=== PATIENT | female | born 2000 | race Caucasian/White ===

== ENCOUNTER 2024-06-05 10:37 | Outpatient (CLI) | payer OTHER, SELFPAY ==
--- NOTE | ~2024-06-05 | US_ITS ---
US abdomen complete DATE: 06/05/2024 11:08 INDICATION: Abdominal pain TECHNIQUE: Real-time imaging and Doppler analysis of the abdomen COMPARISON: None FINDINGS: No hepatic space-occupying mass lesion. Normal hepatopedal portal venous flow direction. No evidence of gallstones or gallbladder wall thickening or abnormal pericholecystic fluid collection . Negative sonographic Candelaria sign. The common bile duct measures 2.3 mm, normal. The pancreas appears normal. Right kidney measures 10.9 cm length, left kidney 10.2 cm. No renal mass lesion or hydronephrosis is noted on either side. The spleen measures 10.5 cm, within normal range. Normal caliber of the abdominal aorta. Flow is demonstrated in the inferior vena cava. IMPRESSION: No significant abnormality Reviewed, dictated and finalized at [facility]. Reviewed, dictated and finalized at [facility]. IMPRESSION: No significant abnormality
== END 2024-06-05 10:38 | disposition home or self-care (01) ==
LOC: MICIMG 10:38
PROVIDERS: PCP Physician Assistant Medical; Visit Provider Physician Assistant Medical
DX: R10.9 Unspecified abdominal pain (principal)
CPT/HCPCS: 76700